=== PATIENT | male | born 1960 | race African-American/Black ===

== ENCOUNTER 2018-04-12 08:47 | Emergency (ER) | payer MEDICARE, MEDICAID ==
[~2018-04-12] VITALS: Ht 190.5 cm; Wt 125.0 kg
[~2018-04-12 08:47] MED LIST: AMLO1TAB15; CIPR-263 PO; DEPAK2; DILT240C91; MULT-1146 PO; NAPR250T; SOMA; TAMS-11; [UNRECOGNIZED DRUG - CODE]
[2018-04-12] MEDS ORDERED: SODIUM CHLORIDE 0.9% 1,000 ML IV ONE (09:11)
[2018-04-12 09:33] LABS: EOSINOPHILS % 2.5 % (0.0-5.0); HEMOGLOBIN. 15.7 g/dL (14.0-18.0); LYMPHOCYTES % 23.7 % (20.0-50.0); MEAN CORPUSCULAR HEMOGLOBIN 30.6 pg (28.0-32.0); MEAN CORPUSCULAR VOLUME 89.8 fL (80.0-94.0); MEAN PLATELET VOLUME 10.1 fl (7.4-10.4); MONOCYTES % 10.8 % (2.0-8.0); PLATELET 126 x1000/uL (130-400); RED BLOOD CELL COUNT 5.12 mill/uL (4.7-6.1); RED CELL DISTRIBUTION WIDTH 14.9 % (11.6-14.6)
[2018-04-12 09:39] LABS: CHLORIDE 106 mEq/L (98-107)
[2018-04-12 09:41] LABS: INR 1.1; PARTIAL THROMBOPLASTIN TIME 25.8 sec (23.4-31.0); PROTHROMBIN TIME 10.9 sec (9.4-11.6)
[2018-04-12 09:47] LABS: CREATINE KINASE 153 IU/L (39-308)
[2018-04-12 10:02] LABS: CREATINE KINASE MB FRACTION 3.1 ng/mL (0.5-3.6)
[2018-04-12 11:20] VITALS: BP 148/76
[2018-04-12] MEDS ORDERED: IOHEXOL-350 100 ML BOTTLE ONE (11:35)
== END 2018-04-12 11:54 | disposition left against medical advice (07) ==
LOC: ER 09:25
DX: I71.01 Dissection of thoracic aorta (principal); I10 Essential (primary) hypertension; F32.9 Major depressive disorder, single episode, unspecified; R20.0 Anesthesia of skin; Z88.0 Allergy status to penicillin; V49.88XA Car occupant (driver) (passenger) injured in other specified transport accidents, initial encounter; Y93.89 Activity, other specified; Y92.410 Unspecified street and highway as the place of occurrence of the external cause; Y99.8 Other external cause status
CPT/HCPCS: 36415; 70498; 71045; 71275; 74174; 80053; 82550; 82553; 83690; 83880; 84484; 85025; 85610; 85730; 93005; 99291; J7030; Q9967; 96360; 96361

== ENCOUNTER 2020-04-12 17:54 | Emergency (ER) | payer MEDICARE, MEDICAID ==
[~2020-04-12] VITALS: Ht 195.6 cm; Wt 142.0 kg
[~2020-04-12 17:54] MED LIST changes: +AMLO-372; -[UNRECOGNIZED DRUG - CODE]
[2020-04-12] MEDS ORDERED: KETOROLAC 30MG/ML VIAL IV STA (18:27)
[2020-04-12 19:26] LABS: BASOPHILS % 0.6 % (0.0-2.0); EOSINOPHILS % 1.2 % (0.0-5.0); HEMATOCRIT. 49.3 % (42.0-52.0); HEMOGLOBIN. 16.6 g/dL (14.0-18.0); LYMPHOCYTES % 13.4 % (20.0-50.0); MEAN CORPUSCULAR HEMOGLOBIN 32.1 pg (28.0-32.0); MEAN CORPUSCULAR VOLUME 95.1 fL (80.0-94.0); MEAN PLATELET VOLUME 10.6 fl (7.4-10.4); MONOCYTES % 8.2 % (2.0-8.0); NEUTROPHILS % 76.6 % (40.0-76.0); PLATELET 102 x1000/uL (130-400); RED BLOOD CELL COUNT 5.18 mill/uL (4.7-6.1); RED CELL DISTRIBUTION WIDTH 15.3 % (11.6-14.6)
[2020-04-12 19:31] LABS: CHLORIDE 106 mEq/L (98-107)
[2020-04-12 21:44] VITALS: BP 132/99
== END 2020-04-12 22:04 | disposition home or self-care (01) ==
LOC: ER 17:54
DX: M62.831 Muscle spasm of calf (principal); J98.51 Mediastinitis; I10 Essential (primary) hypertension; Z88.0 Allergy status to penicillin; Z88.8 Allergy status to other drugs, medicaments and biological substances; Z79.899 Other long term (current) drug therapy; Z98.890 Other specified postprocedural states
CPT/HCPCS: 36415; 71045; 80053; 83880; 84484; 85025; 93005; 99285; J1885